=== PATIENT | male | born 1965 | race Caucasian/White ===

== ENCOUNTER 2016-06-07 23:55 | Emergency (ER) | payer OTHER ==
[~2016-06-07] VITALS: Ht 162.6 cm; Wt 83.0 kg
[2016-06-08 00:02] VITALS: BP 153/85
--- NOTE | 2016-06-08 00:09 | NUR ---
PATIENT PRESENTS TO ED WITH C/O RT INGUINAL/GROIN PAIN X 2 DAYS. 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 DENIES N/V/D; SKIN IS PINK/WARM/DRY; AAOX4 WITH EVEN AND STEADY GAIT; LUNGS CLEAR BL; HR EVEN AND REGULAR; PT DENIES ANY FEVER, CP, SOB, OR COUGH AT THIS TIME; PATIENT STATES PAIN OF 6/10 AT THIS TIME; VSS; PATIENT POSITIONED FOR COMFORT; HOB ELEVATED; BEDRAILS UP X2; BED DOWN. ER MD MADE AWARE OF PT STATUS.
--- NOTE | 2016-06-08 00:36 | NUR ---
Patient being evaluated by physician at bedside.
[2016-06-08] MEDS ORDERED: KETOROLAC 60 MG/2 ML VIAL IM ONE (00:45)
[2016-06-08 01:00] VITALS: BP 143/87
== END 2016-06-08 01:00 | disposition home or self-care (01) ==
LOC: MED 23:55
DX: K40.90 Unilateral inguinal hernia, without obstruction or gangrene, not specified as recurrent (principal); R03.0 Elevated blood-pressure reading, without diagnosis of hypertension
CPT/HCPCS: 99283; J1885